=== PATIENT | male | born 1995 | race Caucasian/White ===

== ENCOUNTER 2020-02-18 17:56 | Emergency (ER) | payer OTHER ==
[~2020-02-18] VITALS: Ht 172.7 cm; Wt 77.5 kg
[2020-02-18] MEDS ORDERED: ADV250INH INH (18:06)
[2020-02-18] MEDS ORDERED: COMBAER6 INH (18:06)
[2020-02-18 19:55] VITALS: BP 130/70
== END 2020-02-18 19:56 | disposition home or self-care (01) ==
LOC: M ED 17:56
DX: S00.03XA Contusion of scalp, initial encounter (principal); S09.8XXA Other specified injuries of head, initial encounter; W20.8XXA Other cause of strike by thrown, projected or falling object, initial encounter; Y92.9 Unspecified place or not applicable; J45.909 Unspecified asthma, uncomplicated; Z79.899 Other long term (current) drug therapy; Y99.9 Unspecified external cause status